=== PATIENT | male | born 1995 | race American Indian/Alaskan Native ===

== ENCOUNTER 2017-06-23 20:45 | Emergency (ER) | payer MEDICAID ==
--- NOTE | 2017-06-23 21:04 | ED PDOC ---
Arrival/HPI - General Chief Complaint: Seizure Time Seen by Provider: 06/23/17 20:47 Historian: Patient, EMS - History of Present Illness Narrative History of Present Illness (Text): 06/23/17 21:01 PT REFUSING VITALS/EVALUATION. PT ARRIVED VIA AMBULANCE WITH COMPLAINT OF "AURO" PER EMS PT ONLY TOOK HALF OF HIS SEIZURE MEDICATION. PT STATES HE ONLY TOOK HALF OF HIS SEIZURE MEDICATION BECAUSE HE DIDNT WANT TO FALL ASLEEP AT WORK. C/O HEADACHE. DENIES DRUG USE. PT DOES NOT WANT TO BE SEEN IN ER. DOES NOT WANT TO ALLOW US TO TAKE VITALS OR PERFORM PHYSICAL EXAMINATION. WANTS TO CALL BROTHER TO PICK HIM UP. Past Medical History - Psychiatric Hx Substance Use: No Family/Social History Family/Social History: Unknown Family HX Smoking Status: Unknown If Ever Smoked Hx Alcohol Use: No Hx Substance Use: No Physical Exam - Physical Exam Narrative Physical Exam (Text): 06/23/17 21:04 PT REFUSED PHYSICAL EXAMINATION Mental Status: Positive for: Alert and Oriented X 3 Medical Decision Making ED Course and Treatment: 06/23/17 21:04 PT IS REFUSING MEDICAL EVALUATION AND TREATMENT. HE IS ALERT AND ORIENTED AMBULATING WITH STEADY GAIT. I HAVE ADVISED THE PATIENT TO ALLOW ME TO EVALUATE HIM BUT HE HAS REFUSED. Patient has been advised to not leave the emergency room but has decided to go AGAINST MEDICAL ADVICE. The patient possesses capacity to make decisions and has voiced understanding to all my warnings of potential worsening of the condition for which medical care was sought. I have discussed all known and potential risks and consequences to the patient leaving AGAINST MEDICAL ADVICE. Patient is leaving against medical advise. AMA form signed. witness by SABINO HALL. PT WAS ADVISED TO RETURN IF HE WISHES TO CONTINUE HIS CARE. I SPOKE WITH THE PATIENTS BROTHER ON THE PHONE; HE WILL COME AND [employer] OPERATOR THE PATIENT. I ADVISED THE PATIENTS BROTHER THAT THE PATIENT IS REFUSING A MEDIAL EVALUATION. Disposition/Present on Arrival - Present on Arrival Any Indicators Present on Arrival: No History of DVT/PE: No History of Uncontrolled Diabetes: No Urinary Catheter: No History of Decub. Ulcer: No History Surgical Site Infection Following: None - Disposition Have Diagnosis and Disposition been Completed?: Yes Diagnosis: Lethargy Disposition: AGAINST MEDICAL ADVICE Disposition Time: 21:11 Condition: UNKNOWN Referrals: [facility] Yasmin Love, [Primary Care Provider] - Follow up with primary Forms: [employer] ([place])
== END 2017-06-23 21:12 | disposition left against medical advice (07) ==
LOC: ED 20:45
DX: R53.83 Other fatigue (principal)